=== PATIENT | female | born 2000 | race Caucasian/White ===

== ENCOUNTER 2024-05-11 07:30 | Emergency (ER) | payer MEDICAID ==
[~2024-05-11] VITALS: Ht 167.6 cm; Wt 76.0 kg
[2024-05-11 07:33] VITALS: O2SAT 99
[2024-05-11] MEDS: SODIUM CHLORIDE 0.9% 1,000 ML IV ONE (08:20)
[2024-05-11 08:57] LABS: BASOPHILS % 0.6 % (0.0-2.0); EOSINOPHILS % 0.4 % (0.0-5.0); HEMATOCRIT. 39.3 % (36.0-48.0); LYMPHOCYTES % 14.9 % (20.0-50.0); MEAN CORPUSCULAR HEMOGLOBIN 28.2 pg (28.0-32.0); MEAN CORPUSCULAR HGB CONC 33.2 g/dL (31.0-37.0); MEAN PLATELET VOLUME 7.7 fl (7.4-10.4); MONOCYTES % 3.1 % (2.0-8.0); PLATELET 374 x1000/uL (130-400); RED BLOOD CELL COUNT 4.63 mill/uL (4.2-5.4); RED CELL DISTRIBUTION WIDTH 13.5 % (11.6-14.6); WHITE BLOOD COUNT 6.2 x1000/uL (4.5-11.0)
[2024-05-11 09:09] LABS: CHLORIDE 106 mEq/L (98-107); POTASSIUM 3.5 mEq/L (3.5-5.1); SODIUM 140 mEq/L (136-145)
[2024-05-11 09:10] LABS: CALCIUM 9.2 mg/dL (8.7-10.4); CARBON DIOXIDE 23 mEq/L (21-32)
[2024-05-11 09:15] LABS: CREATININE 0.8 mg/dL (0.6-1.0); GLUCOSE 104 mg/dL (70-105); UREA NITROGEN BLOOD 7 mg/dL (9-23)
[2024-05-11 09:17] LABS: ACETAMINOPHEN 45 ug/mL (10-30)
[2024-05-11 09:19] LABS: CLARITY URINE CLOUDY (CLEAR); COLOR URINE DARK YELLOW (YELLOW); GLUCOSE URINE NEGATIVE (NEGATIVE); KETONES URINE NEGATIVE (NEGATIVE); LEUKOCYTE ESTERASE URINE NEGATIVE (NEGATIVE); NITRITE URINE NEGATIVE (NEGATIVE); OCCULT BLOOD URINE NEGATIVE (NEGATIVE); PROTEIN URINE 1+ (NEGATIVE); SPECIFIC GRAVITY URINE 1.059 (1.005-1.030)
[2024-05-11 09:20] LABS: ETHANOL BLOOD < 10 mg/dL (<10)
[2024-05-11 09:25] LABS: HCG SCREEN NEGATIVE
[2024-05-11 09:37] LABS: *AMPHETAMINES SCREEN URINE NEGATIVE (NEGATIVE); *BARBITURATES SCREEN URINE NEGATIVE (NEGATIVE); *COCAINE SCREEN URINE NEGATIVE (NEGATIVE)
[2024-05-11 09:38] LABS: ECSTASY MDMA SCREEN URINE NEGATIVE (NEGATIVE); METHADONE URINE SCREEN NEGATIVE (NEGATIVE); OPIATES URINE SCREEN NEGATIVE (NEGATIVE); PHENCYCLIDINE URINE SCREEN NEGATIVE (NEGATIVE)
[2024-05-11 09:51] LABS: BACTERIA URINE 4+; MUCUS URINE 3+ /lpf (< = 2+); SQUAMOUS EPITHELIAL CELL URINE 2+ /lpf (RARE/1+)
[2024-05-11 09:52] LABS: RBC URINE 0-2 /hpf (0-2)
[2024-05-11 12:40] LABS: ACETAMINOPHEN 24 ug/mL (10-30); ALANINE AMINOTRANSFERASE 7 IU/L (10-49); ALBUMIN 4.3 g/dL (3.2-4.8); ASPARTATE AMINOTRANSFERASE 11 IU/L (<34); BILIRUBIN DIRECT 0.1 mg/dL (<=3.0); BILIRUBIN TOTAL 0.3 mg/dL (0.1-1.0)
[2024-05-12 10:43] VITALS: BP 136/80; PULSE 85; RESP 16; TEMP 97.6
== END 2024-05-12 10:51 ==
LOC: ER 07:30
DX: T65.92XA Toxic effect of unspecified substance, intentional self-harm, initial encounter (principal); S51.812A Laceration without foreign body of left forearm, initial encounter; Z20.822 Contact with and (suspected) exposure to COVID-19; W26.0XXA Contact with knife, initial encounter; Y93.89 Activity, other specified; Y92.89 Other specified places as the place of occurrence of the external cause; Y99.8 Other external cause status; Y92.9 Unspecified place or not applicable
CPT/HCPCS: 80076; 80305; 80048; 81003; 81025; 80307; 80329; 80320; 84703; 85025; 36415; 71045; 96360; 96361; 99285; 87426; J7030; G0480